=== PATIENT | male | born 1990 | race Caucasian/White ===

== ENCOUNTER 2021-02-03 10:24 | Emergency (ER) | payer OTHER ==
[~2021-02-03] VITALS: Ht 175.3 cm; Wt 102.1 kg
[2021-02-03 10:30] VITALS: BP 109/76
--- NOTE | 2021-02-03 11:31 | NUR ---
Patient awake alert non distress xray done .
[2021-02-03] MEDS ORDERED: NAPR-1164 PO (11:45)
--- NOTE | 2021-02-03 11:56 | NUR ---
Patient discharged to home in stable condition. Written and verbal after care instructions given. Patient verbalizes understanding of instruction.
== END 2021-02-03 11:57 | disposition home or self-care (01) ==
LOC: ER 10:30
DX: S20.211A Contusion of right front wall of thorax, initial encounter (principal); X58.XXXA Exposure to other specified factors, initial encounter; Y93.89 Activity, other specified; Y92.89 Other specified places as the place of occurrence of the external cause; Y99.8 Other external cause status
CPT/HCPCS: 71111-TC

== ENCOUNTER 2021-03-27 19:37 | Emergency (ER) | payer OTHER ==
[~2021-03-27] VITALS: Ht 175.3 cm; Wt 105.7 kg
[~2021-03-27 19:37] MED LIST: NAPR-1164 PO
[2021-03-27 19:45] VITALS: BP 132/67
[2021-03-27] MEDS ORDERED: NAPR-1143 PO (20:01)
--- NOTE | 2021-03-27 20:03 | NUR ---
PT LEFT WITHOUT SIGNING ACI. MD GAVE VERBAL ACI WELL
--- NOTE | 2021-03-27 20:03 | NUR ---
Patient discharged to home in stable condition. Written and verbal after care instructions given. Patient verbalizes understanding of instruction. Pt ambulatory with a steady gait
== END 2021-03-27 20:06 | disposition home or self-care (01) ==
LOC: ER 19:37
DX: J02.9 Acute pharyngitis, unspecified (principal); Z79.899 Other long term (current) drug therapy

== ENCOUNTER 2021-08-05 11:22 | Emergency (ER) | payer OTHER ==
[~2021-08-05] VITALS: Ht 175.3 cm; Wt 104.3 kg
[~2021-08-05 11:22] MED LIST changes: +NAPR-1143 PO
[2021-08-05 11:28] VITALS: BP 146/73
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
--- NOTE | 2021-08-05 12:03 | NUR ---
X-RAY TECH AT THE BEDSIDE
[2021-08-05] MEDS ORDERED: IBUP-1955 PO (12:18)
--- NOTE | 2021-08-05 12:59 | NUR ---
Patient discharged to home in stable condition. Written and verbal after care instructions given. Patient verbalizes understanding of instruction.
== END 2021-08-05 13:00 | disposition home or self-care (01) ==
LOC: ER 11:25
DX: S93.492A Sprain of other ligament of left ankle, initial encounter (principal); M79.672 Pain in left foot; Z79.899 Other long term (current) drug therapy; W05.1XXA Fall from non-moving nonmotorized scooter, initial encounter; Y93.55 Activity, bike riding; Y92.89 Other specified places as the place of occurrence of the external cause; Y99.8 Other external cause status
CPT/HCPCS: 73610-TC; 73630-TC